=== PATIENT | male | born 1950 | race Caucasian/White ===

== ENCOUNTER 2019-05-14 10:44 | Emergency (ER) | payer MEDICARE ==
--- NOTE | 2019-05-14 10:54 | ERPHSYRPT ---
- History of Present Illness Time Seen by Provider: 05/14/19 10:48 Source: patient, family, old records Exam Limitations: no limitations Physician History: PT IS A 69 Y/O MALE PRESENTS "MY DOCTOR TOLD ME TO COME HERE." PT REFERRED FOR MIDTHORACIC BACK PAIN, ABNORMAL EKG AND HYPERTENSION. PT STATES HE HAS HAD MIDTHORACIC SHARP BACK PAIN X 2 WEEKS, NON RADIATING, NO CHANGE WITH EXERTION THAT IS WORSE WITH MOVEMENT OR LAYING FLAT. + DYSPNEA WITH GONZALEZ WHICH HE ATTRIBUTES TO TOB ABUSE AND COPD. NO FEVER/CHILLS. + YELLOW SPUTUM. NO N/V/D/ PARESTHESIAS/DYSURIA/HEMATURIA/PALPITATIONS. NO UNILATERAL WEAKNESS. PMHX: COPD, HTN PSHX DENIES MEDS REVIEWED ALL PCN +TOB DENIES ETOH/ILLICITS FHX BROTHER AT 69 OF [place] RETIRED Allergies/Adverse Reactions: Penicillins Allergy (Verified 05/14/19 11:09) - Review of Systems Constitutional: No Symptoms, No Fever, No Chills, No Fatigue, No Lethargy, No Malaise, No Night Sweats, No Weakness, No Weight Loss Eyes: No Symptoms, No Discharge, No Eye Pain, No Eye Redness, No Itchy, No Photophobia, No Tearing, No Vision Changes, No Double Vision, No Foreign Body Sensation Ears, Nose, & Throat: No Symptoms, No Ear Pain, No Ear Discharge, No Hearing Changes, No Tinnitus, No Nose Congestion, No Nose Discharge, No Epistaxis, No Mouth Pain, No Mouth Swelling, No Throat Pain, No Throat Swelling, No Hoarse, No Painful Swallowing, No Stridor Respiratory: No Symptoms, Cough, No Cyanosis, No Dyspnea, No Dyspnea on Exertion (GONZALEZ), No Stridor, No Wheezing Cardiac: No Symptoms, No Chest Pain, No Edema, No Palpitations, No Syncope, No Orthopnea Abdominal/Gastrointestinal: No Symptoms, No Abdominal Pain, No Nausea, No Vomiting, No Diarrhea, No Constipation, No Hematemesis, No Hematochezia, No Melena, No Dysphagia, No Appetite Changes Genitourinary Symptoms: No Symptoms, No Dysuria, No Frequency, No Hematuria, No Hesitancy, No Incontinence, No Urgency, No Urinary Retention, No Flank Pain Musculoskeletal: No Symptoms, Back Pain, No Arthralgias, No Neck Pain, No Deformity, No Fall, No Injury, No Joint Redness, No Joint Pain, No Joint Swelling, No Myalgias Skin: No Symptoms, No Cellulitis, No Decubiti, No Induration, No Pruritis, No Rash, No Skin Lesions, No Dryness Neurological: No Symptoms, No Dizziness, No Focal Weakness, No Gait Changes, No Headache, No Irritability, No Lethargy, No Paralysis, No Parasthesia, No Seizure , No Sensory Changes, No Speech Changes, No Tics, No Tremors, No Vertigo Psychological: No Symptoms, No Alcohol Abuse, No Drug Abuse, No Anxiety, No Depression, No Suicidal Ideations, No Homicidal Ideations, No Emotional Lability , No Hallucinations, No Memory Loss, No Mood Changes Endocrine: No Symptoms, No Polyuria, No Polydipsia, No Hair Changes, No Cold Intolerance, No Excessive Sweating, No Goiter Hematologic/Lymphatic: No Symptoms, No Anemia, No Blood Clots, No Easy Bleeding , No Gum Bleeding, No Easy Bruising, No Adenopathy Immunological/Allergic: No Symptoms All Other Systems: Reviewed and Negative - Nursing Vital Signs Nursing Vital Signs: Initial Vital Signs Temperature 97.3 F 05/14/19 10:50 Pulse Rate 71 05/14/19 10:50 Respiratory Rate 16 05/14/19 10:50 Blood Pressure 180/89 05/14/19 10:50 O2 Sat by Pulse Oximetry 95 05/14/19 10:50 Pain Scale Pain Intensity 0 - Physical Exam General Appearance: no apparent distress, alert Eye Exam: PERRL/EOMI, eyes nml inspection, other (fundi normal naty), No scleral icterus, No pale conjunctivae, No photophobia, No EOM palsy/anisocoria Ears, Nose, Throat Exam: normal ENT inspection, TMs normal, pharynx normal, TM abnormal (L), other (uvula midline, floor of mouth soft), No moist mucous membranes, No dry mucous membranes, No TM abnormal (R), No pharyngeal erythema, No tonsillar exudate Neck Exam: normal inspection, non-tender, supple, full range of motion, No meningismus, No mass, No Brudzinski, No Kernig's, No carotid bruit, No JVD, No limited range of motion, No lymphadenopathy, No midline tenderness, No thyromegaly Respiratory Exam: normal breath sounds, lungs clear, airway intact, diminished breath sounds, No chest tenderness, No respiratory distress, No accessory muscle use, No prolonged expirations, No crackles/rales, No rhonchi, No wheezing , No stridor, No pleural rub Cardiovascular Exam: regular rate/rhythm, normal heart sounds, normal peripheral pulses, capillary refill <2 sec, No murmur, No friction rub, No gallop, No tachycardia, No bradycardia, No irregular, No capillary refill 2-3 sec, No capillary refill >3 sec, No edema, No pulse deficit Gastrointestinal/Abdomen Exam: soft, normal bowel sounds, No tenderness, No distention, No mass, No guarding, No ecchymosis, No pulsatile mass, No rebound, No hernia, No hepatomegaly, No organomegaly, No splenomegaly, No bruit Male Genitalia Exam: normal genitalia Rectal Exam: deferred Back Exam: normal inspection, normal range of motion, other (neg slr naty, no sacral anesthesia, dtr 2/4 naty patella + MIDLINE TTP T4 NO PARASPINAL SPASM), No CVA tenderness, No vertebral tenderness, No rash, No decreased range of motion, No muscle spasm, No point tenderness Extremity Exam: normal inspection, normal range of motion, pelvis stable, No amputations, No contusions, No calf tenderness, No deformities, No lacerations, No parasthesia, No paralysis, No inflammation, No joint swelling, No limited range of motion, No pedal edema, No swelling, No tenderness Neurologic Exam: alert, oriented x 3, cooperative, internet marketer II-XII nml as tested, normal mood/affect, nml cerebellar function, nml station & gait, sensation nml, No motor deficits, No sensory deficit, No disoriented, No confusion, No agitation, No uncooperative, No intoxicated appearance, No depressed mood/affect , No motor weakness, No facial droop, No slurred speech, No aphasia, No dysarthria, No abnormal gait, No abnormal cerebellar tests, No abnormal internet marketer II- XII, No EOM palsy Skin Exam: normal color, warm, dry, No rash, No petechiae, No jaundice, No abrasion, No cyanosis, No diaphoresis, No decubitus, No embolic lesions, No ecchymosis, No jaundice, No laceration, No mottled, No pale Lymphatic Exam: No adenopathy SpO2 Interpretation: normal O2 Delivery: Room Air - Course Nursing assessment & vital signs reviewed: Yes EKG Interpreted by Me: RATE, Sinus Rhythm, NORMAL AXIS, 1st degree AV Block, Other (TWI 1, AVL, V4-V6 MINIMAL ST DEPRESSION V4-V6 NO OLD FOR COMPARE) Ordered Tests: Active Orders 24 hr Category Date Time Status Lehr Operator STAT Care 05/14/19 11:00 Active EKG-ER Only STAT Care 05/14/19 10:59 Active IV Insertion STAT Care 05/14/19 10:59 Active Pulse Oximetry (ED) STAT Care 05/14/19 10:59 Active CHEST 1 VIEW (PORTABLE) Stat Exams 05/14/19 11:00 Completed CTA ABD/PEL W AND/OR W/O CONTR [CT] Stat Exams 05/14/19 13:06 Completed CTA CHEST W AND/OR WO [CT] Stat Exams 05/14/19 11:01 Completed CBC W DIFF Stat Lab 05/14/19 11:20 Completed CK-Creatinine Phosphokinase Stat Lab 05/14/19 11:20 Completed CMP Stat Lab 05/14/19 11:20 Completed LIPASE Stat Lab 05/14/19 11:20 Completed NT PRO BNP Stat Lab 05/14/19 11:20 Completed TROPONIN Q3H Lab 05/14/19 11:20 Completed TROPONIN Q3H Lab 05/14/19 13:58 Completed TROPONIN Q3H Lab 05/14/19 17:00 Ordered TROPONIN Q3H Lab 05/14/19 20:00 Ordered TROPONIN Q3H Lab 05/14/19 23:00 Ordered UA W/RFX UR CULTURE Stat Lab 05/14/19 12:42 Completed Medication Summary Discontinued Medications Generic Name Dose Route Start Last Admin Trade Name Freq PRN Reason Stop Dose Admin Aspirin 324 mg 05/14/19 10:59 05/14/19 11:32 Baby Aspirin 81 Mg Chew PO 05/14/19 11:00 324 mg STAT ONE Administration Aspirin Confirm 05/14/19 11:25 Baby Aspirin 81 Mg Chew Administered 05/14/19 11:26 Dose 324 mg .ROUTE .STK-MED ONE Morphine Sulfate 4 mg 05/14/19 11:13 05/14/19 11:32 Morphine Sulfate 4 Mg Inj IM 05/14/19 11:14 Not Given STAT ONE Morphine Sulfate Confirm 05/14/19 11:24 Morphine Sulfate 4 Mg Inj Administered 05/14/19 11:25 Dose 4 mg .ROUTE .STK-MED ONE Morphine Sulfate 4 mg 05/14/19 11:30 05/14/19 11:32 Morphine Sulfate 4 Mg Inj IV 05/14/19 11:31 4 mg STAT ONE Administration Lab/Rad Data: Laboratory Result Diagrams 05/14/19 11:20 05/14/19 11:20 Laboratory Results 05/14/19 05/14/19 05/14/19 Range/Units 13:58 12:42 11:20 WBC (4.0-10.5) K/mm3 RBC (4.1-5.6) M/mm3 Hgb (12.5-18.0) gm/dl Hct (42-50) % MCV (78-100) fl MCH (26-32) pg MCHC (32-36) g/dl RDW (11.5-14.0) % Plt Count (150-450) K/mm3 MPV (6-9.5) fl Gran % (36.0-66.0) % Eos # (Auto) (0-0.5) Absolute Lymphs (auto) (1.0-4.6) Absolute Monos (auto) (0.0-1.3) Lymphocytes % (24.0-44.0) % Monocytes % (0.0-12.0) % Eosinophils % (0.00-5.0) % Basophils % (0.0-0.4) % Absolute Granulocytes (1.4-6.9) Basophils # (0-0.4) Sodium (137-145) mmol/L Potassium (3.5-5.1) mmol/L Chloride (98-107) mmol/L Carbon Dioxide (22-30) mmol/L Anion Gap (5-15) MEQ/L BUN (9-20) mg/dL Creatinine (0.66-1.25) mg/dL Estimated GFR ML/MIN Glucose (74-106) mg/dL Calcium (8.4-10.2) mg/dL Total Bilirubin (0.2-1.3) mg/dL AST (17-59) U/L ALT (0-50) U/L Alkaline Phosphatase (38-126) U/L Creatine Kinase (55-170) U/L Troponin I < 0.012 < 0.012 (0.000-0.034) ng/mL NT-Pro-B Natriuret Pep (0-900) pg/mL Serum Total Protein (6.3-8.2) g/dL Albumin (3.5-5.0) g/dL Lipase (23-300) U/L Urine Color YELLOW (YELLOW) Urine Appearance CLEAR (CLEAR) Urine pH 6.0 (5-6) Ur Specific [place] 1.024 (1.005-1.025) Urine Protein NEGATIVE (Negative) Urine Ketones NEGATIVE (NEGATIVE) Urine Blood NEGATIVE (0-5) Kevin/ul Urine Nitrite NEGATIVE (NEGATIVE) Urine Bilirubin NEGATIVE (NEGATIVE) Urine Urobilinogen NEGATIVE (0-1) mg/dL Ur Leukocyte Esterase NEGATIVE (NEGATIVE) Urine WBC (Auto) NONE (0-5) /HPF Urine RBC (Auto) NONE (0-2) /HPF U Epithel Cells (Auto) NONE (FEW) /HPF Urine Bacteria (Auto) NONE (NEGATIVE) /HPF Urine Mucus (Auto) SLIGHT (NEGATIVE) /HPF Urine Culture Reflexed NO (NO) Urine Glucose NEGATIVE (NEGATIVE) mg/dL 05/14/19 05/14/19 Range/Units 11:20 11:20 WBC 12.7 H (4.0-10.5) K/mm3 RBC 5.57 (4.1-5.6) M/mm3 Hgb 16.7 (12.5-18.0) gm/dl Hct 51.3 H (42-50) % MCV 92.1 (78-100) fl MCH 30.0 (26-32) pg MCHC 32.6 (32-36) g/dl RDW 14.4 H (11.5-14.0) % Plt Count 230 (150-450) K/mm3 MPV 10.1 H (6-9.5) fl Gran % 66.9 H (36.0-66.0) % Eos # (Auto) 0.39 (0-0.5) Absolute Lymphs (auto) 2.99 (1.0-4.6) Absolute Monos (auto) 0.79 (0.0-1.3) Lymphocytes % 23.5 L (24.0-44.0) % Monocytes % 6.2 (0.0-12.0) % Eosinophils % 3.1 (0.00-5.0) % Basophils % 0.3 (0.0-0.4) % Absolute Granulocytes 8.49 H (1.4-6.9) Basophils # 0.04 (0-0.4) Sodium 144 (137-145) mmol/L Potassium 4.6 (3.5-5.1) mmol/L Chloride 103 (98-107) mmol/L Carbon Dioxide 30 (22-30) mmol/L Anion Gap 15.2 H (5-15) MEQ/L BUN 21 H (9-20) mg/dL Creatinine 0.82 (0.66-1.25) mg/dL Estimated GFR > 60.0 ML/MIN Glucose 101 (74-106) mg/dL Calcium 9.3 (8.4-10.2) mg/dL Total Bilirubin 0.40 (0.2-1.3) mg/dL AST 26 (17-59) U/L ALT 22 (0-50) U/L Alkaline Phosphatase 79 (38-126) U/L Creatine Kinase 52 L (55-170) U/L Troponin I (0.000-0.034) ng/mL NT-Pro-B Natriuret Pep 263 (0-900) pg/mL Serum Total Protein 8.1 (6.3-8.2) g/dL Albumin 4.5 (3.5-5.0) g/dL Lipase 70 (23-300) U/L Urine Color (YELLOW) Urine Appearance (CLEAR) Urine pH (5-6) Ur Specific [place] (1.005-1.025) Urine Protein (Negative) Urine Ketones (NEGATIVE) Urine Blood (0-5) Kevin/ul Urine Nitrite (NEGATIVE) Urine Bilirubin (NEGATIVE) Urine Urobilinogen (0-1) mg/dL Ur Leukocyte Esterase (NEGATIVE) Urine WBC (Auto) (0-5) /HPF Urine RBC (Auto) (0-2) /HPF U Epithel Cells (Auto) (FEW) /HPF Urine Bacteria (Auto) (NEGATIVE) /HPF Urine Mucus (Auto) (NEGATIVE) /HPF Urine Culture Reflexed (NO) Urine Glucose (NEGATIVE) mg/dL - Progress Progress: improved Progress Note: 05/14/19 11:21 CALL TO [facility] FOR CARDS CONSULT. NO OLD EKG TO COMPARE. PT STATES "IM NOT GOING ANYWHERE." FAX EKG TO [facility] AWAIT CARDS CB. 05/14/19 11:28 ER PRELIM CXR IS ? RLL SCARRING VS EARLY INFILTRATE, BLURRED KNOB UNCHANGED FROM PRIOR WIDE MEDIASTINUM MAY BE RELATED TO TECHNIQUE. 05/14/19 11:34 ER XR OVERREAD PER RAD IS NAD, ROTATED 05/14/19 12:[address] NAVARRO. AGREES WITH CTA, REPEAT EKG AND TROPONIN. IF NO CHANGES CAN BE OUTPATIENT DISPOSITION. DIFFICULT TO TELL FROM EKG WHETHER ANGINA, LVH, OR AAA. 05/14/19 12:02 05/14/19 13:05 BACK PAIN 09/08. AWAIT RAD READ. 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 PAIN FREE. AWAIT REPEAT EKG PLAN DC WITH FUP ALL QUESTIONS ANSWERED TO PT AND FAMILY SATISAFCATION 05/14/19 14:54 EKG #2 IS NSR @68 LA 214 TWI 1, AVL, V4-V6 WITH MINIMAL 0.[address] DEPRESSION V4 -V5 UNCHANGED FROM #1. Counseled pt/family regarding: drug and/or alcohol abuse, lab results, diagnosis , need for follow-up, rad results, smoking cessation - Departure Departure Disposition: Home Clinical Impression: Strain of thoracic spine, Abnormal EKG, Hypertension Condition: Good Critical Care Time: No Referrals: TRISH RUTHERFORD [Primary Care Provider] - Instructions: Low Back Pain (DC) Additional Instructions: TO ER IF CHEST PAIN, SHORTNESS OF BREATH, FEVER OVER 102, INTRACTABLE VOMTING CANNOT FEEL YOUR ARMS DROPPING THINGS TYLENOL OR MOTRIN FOR DISCOMFORT PLEASE FOLLOW UP WITH YOUR DOCTOR IN 2-3 DAYS FOR RE-EVALUATION AND DEFINITIVE CARE STOP USING TOBACCO PRODUCTS THESE WILL WORSEN YOUR CONDITION
[2019-05-14] MEDS ORDERED: BABY ASPIRIN 81 MG CHEW PO ONE (10:59)
[2019-05-14] MEDS ORDERED: MORPHINE SULFATE 4 MG INJ IM ONE (11:13)
[2019-05-14] MEDS ORDERED: MORPHINE SULFATE 4 MG INJ ONE (11:24)
[2019-05-14] MEDS ORDERED: BABY ASPIRIN 81 MG CHEW ONE (11:25)
[2019-05-14 11:29] LABS: Absolute Neutrophil Ct (ANC) 8.49 (1.4-6.9); BASOPHIL % 0.3 % (0.0-0.4); Basophil (Absolute #) 0.04 (0-0.4); Eosinophil % 3.1 % (0.00-5.0); Eosinophil (Absolute #) 0.39 (0-0.5); Hematocrit 51.3 % (42-50); Hemoglobin 16.7 gm/dl (12.5-18.0); Lymphocyte (Absolute #) 2.99 (1.0-4.6); Lymphocytes % 23.5 % (24.0-44.0); Mean Cell Volume 92.1 fl (78-100); Mean Corpuscular Hgb Concent. 32.6 g/dl (32-36); Mean Platelet Volume 10.1 fl (6-9.5); Monocyte (Absolute #) 0.79 (0.0-1.3); Monocytes % 6.2 % (0.0-12.0); Neutrophil % 66.9 % (36.0-66.0); Platelet Count 230 K/mm3 (150-450); Red Blood Count 5.57 M/mm3 (4.1-5.6); Red Cell Distribution Width 14.4 % (11.5-14.0); White Blood Count 12.7 K/mm3 (4.0-10.5)
[2019-05-14] MEDS ORDERED: MORPHINE SULFATE 4 MG INJ IV ONE (11:30)
--- NOTE | 2019-05-14 11:31 | XRAY ---
Indication: Chest and shoulder pain. Comparison: None Portable chest is mildly rotated. Lungs remain hyperinflated and clear. Heart is not enlarged. Bony thorax intact again with minimal degenerative changes. Impression: Nonacute hyperinflated chest.
[2019-05-14 11:51] LABS: ALBUMIN 4.5 g/dL (3.5-5.0); ALKALINE PHOSPHATASE 79 U/L (38-126); ANION GAP 15.2 MEQ/L (5-15); BLOOD UREA NITROGEN 21 mg/dL (9-20); CHLORIDE 103 mmol/L (98-107); CK-Creatinine Phosphokinase 52 U/L (55-170); Calcium 9.3 mg/dL (8.4-10.2); Carbon Dioxide 30 mmol/L (22-30); Creatinine 1 0.82 mg/dL (0.66-1.25); Glucose 101 mg/dL (74-106); LIPASE 70 U/L (23-300); NT PRO BNP 263 pg/mL (0-900); Potassium 4.6 mmol/L (3.5-5.1); SGOT/AST 26 U/L (17-59); SGPT/ALT 22 U/L (0-50); SODIUM 144 mmol/L (137-145); Total Protein 8.1 g/dL (6.3-8.2)
[2019-05-14 12:54] LABS: Appearance CLEAR (CLEAR); Bilirubin NEGATIVE (NEGATIVE); Blood NEGATIVE Ery/ul (0-5); Glucose NEGATIVE (NEGATIVE); Ketones NEGATIVE (NEGATIVE); Leukocyte Esterase NEGATIVE (NEGATIVE); Mucus SLIGHT /HPF (NEGATIVE); Nitrite NEGATIVE (NEGATIVE); Protein,Urine Dip NEGATIVE (Negative); Specific Gravity 1.024 (1.005-1.025); Urobilinogen NEGATIVE mg/dL (0-1)
--- NOTE | 2019-05-14 13:29 | XRAY ---
Indication: Mid thoracic pain 2 weeks. Conventional CTA chest performed using 100 cc Isovue 370 contrast. Two-dimensional sagittal and coronal reformatted images obtained. Additional 3-dimensional reformatted images obtained using a separate workstation. Comparison: None Thoracic aorta is mildly arteriosclerotic without aneurysm/dissection. No pulmonary embolus in the main pulmonary arteries. Heart is not enlarged. There is a 3.3 x 1.8 cm right subdural noncalcified soft tissue mass favoring lymphadenopathy. Smaller subcentimeter distal paratracheal lymph nodes. No left hilar pathologic lymphadenopathy. Small hiatal hernia. Lungs demonstrate moderate pulmonary emphysema greatest in both upper lobes. Also mild bilateral upper lobe peripheral fibrosis/scarring. There is right suprahilar noncalcified nodular mass measuring at least 4.6 x 4.3 x 4 cm worrisome for malignancy. There is mass effect with effacement of the posterior segment bronchus. Medial segment of the right lower lobe demonstrates atelectasis with some volume loss. No infiltrate or effusion. Bony thorax intact with minimal degenerative changes throughout the spine. CT abdomen reported separately. Impression: 1. Mild arteriosclerotic thoracic aorta without aneurysm/dissection. Negative central pulmonary embolus. 2. Right suprahilar noncalcified soft tissue mass as detailed worrisome for malignancy. Also right suprahilar lymphadenopathy possibly metastasis. 3. Incidental diffuse pulmonary emphysema and small hiatal hernia. CT DI 22.05
--- NOTE | 2019-05-14 13:36 | XRAY ---
Indication: Mid thoracic pain 2 weeks. Conventional CTA abdomen/pelvis performed using 100 cc Isovue 370 contrast. Two-dimensional sagittal and coronal reformatted images obtained. Additional 3-dimensional reformatted images obtained using a separate workstation. Comparison: None CT chest reported separately. Abdominal aorta demonstrates mild/moderate scattered arteriosclerotic disease. Infrarenal aorta demonstrates fusiform aneurysm dilatation up to 4.2 x 4.2 cm. No dissection. Left and right common iliac arteries are also arteriosclerotic with the right measuring 3.1 cm and the left measuring 2.4 cm in diameter. No free fluid/air. Noncontrasted stomach and bowel loops appear nonobstructed. Mild diffuse scattered colonic fecal debris. Also mild scattered colonic diverticulosis greatest in the sigmoid colon. Gallbladder demonstrates minimal wall calcifications with 7 mm stone. There is a 2.1 x 2.7 cm right adrenal and 2.0 x 3.0 cm left adrenal gland noncalcified masses possibly adrenal hypertrophy. Metastasis not completely excluded given the right lung mass with lymphadenopathy. Remaining liver, pancreas, spleen, kidneys, ureters, and bladder appear unremarkable. No pathologic retroperitoneal lymphadenopathy. Osseous structures intact with L5-S1 degenerative changes. No suspicious bony lesions. Impression: 1. 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 2. Bilateral adrenal gland noncalcified masses possible adrenal hypertrophy. Metastasis not completely excluded given right lung mass with lymphadenopathy. 3. Incidental mild diffuse fecal stasis with colonic diverticulosis. 4. Minimal porcelain gallbladder with tiny stone. CT DI 22.05
[2019-05-14 13:54] VITALS: BP 162/96; PULSE 68; O2SAT 92
== END 2019-05-14 15:02 | disposition home or self-care (01) ==
LOC: ED 10:44
DX: S29.012A Strain of muscle and tendon of back wall of thorax, initial encounter (principal); R94.31 Abnormal electrocardiogram [ECG] [EKG]; J44.9 Chronic obstructive pulmonary disease, unspecified; I10 Essential (primary) hypertension; M54.6 Pain in thoracic spine
CPT/HCPCS: 36000; 36415; 71045; 71275; 74174; 80053; 81001; 82550; 83690; 83880; 84484; 85025; 93005; 93041; 94760; 96374; 99284; J2270; A9270-GY